=== PATIENT | male | born 1985 | race Caucasian/White ===

== ENCOUNTER 2017-11-26 13:50 | Inpatient (IN) | payer MEDICARE, MEDICAID ==
[~2017-11-26] VITALS: Ht 177.8 cm; Wt 77.6 kg
[~2017-11-26 13:50] MED LIST: LURA80 PO
[2017-11-26 15:27] LABS: APPEARANCE,URINE TURBID (CLEAR); BILIRUBIN,URINE NEGATIVE (NEGATIVE); GLUCOSE, URINE (UA) NEGATIVE (NEGATIVE); KETONES,URINE NEGATIVE (NEGATIVE); LEUKOCYTE ESTERASE ,URINE NEGATIVE (NEGATIVE); NITRATE,URINE NEGATIVE (NEGATIVE); OCCULT BLOOD,URINE NEGATIVE (NEGATIVE); PH,URINE 7.5 (5.0-8.0); PROTEIN,URINE NEGATIVE (NEGATIVE)
[2017-11-26] MEDS ORDERED: LITH300C3 PO (15:33)
[2017-11-26] MEDS ORDERED: PROP20TA7 PO (15:34)
[2017-11-26] MEDS ORDERED: BENZ0.5T6 PO (15:37)
[2017-11-26] MEDS ORDERED: DiphenhydrAMINE HCL 50 MG/ML VIAL IM ONE (17:00)
[2017-11-26] MEDS ORDERED: FluPHENAZine HCL 2.5 MG/ML INJ IM ONE (17:00)
[2017-11-26] MEDS ORDERED: LORazepam 2 MG/ML VIAL IM ONE (17:00)
[2017-11-26 17:04] LABS: BASOPHILS % (AUTO) 0.6 % (0.0-2.0); EOSINOPHILS % (AUTO) 3.7 % (1.0-6.0); HEMATOCRIT 41.9 % (41-53); HEMOGLOBIN 13.9 g/dL (13.5-17.5); LYMPHOCYTES # (AUTO) 2.6 K/uL (1.0-4.8); LYMPHOCYTES % (AUTO) 22.7 % (22.0-44.0); MEAN CORPUSCULAR HEMOGLOBIN 31.2 pg (26.0-34.0); MEAN CORPUSCULAR HGB CONC 33.2 G/dL (31.0-37.0); MEAN CORPUSCULAR VOLUME 94 fL (80-100); MONOCYTES # (AUTO) 0.9 K/uL (0.1-1.0); MONOCYTES % (AUTO) 7.8 % (2.0-9.0); NEUTROPHILS # (AUTO) 7.4 K/uL (1.8-7.7); NEUTROPHILS % (AUTO) 65.2 % (40.0-70.0); PLATELET COUNT (AUTO) 333 K/uL (150-450); RED BLOOD CELL COUNT(AUTO) 4.46 MIL/uL (4.50-5.90); RED CELL DISTRIBUTION WIDTH 14.8 % (11.5-14.5)
[2017-11-26 17:22] LABS: ANION GAP 12 mmol/L (8-16); CALCIUM, TOTAL 9.5 mg/dL (8.8-10.5); CARBON DIOXIDE 27 mmol/L (22-29); CHLORIDE 102 mmol/L (98-107); CREATININE 0.97 mg/dL (0.60-1.30); GLOMERULAR FILTR. RATE CALC > 60 mL/min (>60); GLUCOSE,RANDOM 116 mg/dL (70-110); POTASSIUM 3.8 mmol/L (3.5-5.1); SODIUM SERUM 141 mmol/L (136-145); UREA NITROGEN, BLOOD 10 mg/dL (7-18)
[2017-11-26 17:30] LABS: ALANINE AMINOTRANSFERASE 37 U/L (12-78); ALKALINE PHOSPHATASE 68 U/L (46-116); ASPARTATE AMINOTRANSFERASE 29 U/L (15-37); BILIRUBIN,TOTAL 0.2 mg/dL (0.1-1.0); TOTAL PROTEIN, SERUM 7.1 g/dL (6.4-8.2)
[2017-11-26] MEDS ORDERED: FluPHENAZine HCL 5 MG TABLET PO PRN (17:30)
[2017-11-26] MEDS ORDERED: ZOLPIDEM TARTRATE 10 MG TABLET PO PRN (17:30)
[2017-11-26 18:49] LABS: AMPHET/METH SCREEN,URINE NEGATIVE (NEGATIVE); BARBITURATE SCREEN, URINE NEGATIVE (NEGATIVE); BENZODIAZEPINES SCREEN,URINE NEGATIVE (NEGATIVE); CANNABINOID SCREEN,URINE POSITIVE (NEGATIVE); COCAINE SCREEN,URINE NEGATIVE (NEGATIVE); METHADONE SCREEN, URINE NEGATIVE (NEGATIVE); OPIATE SCREEN,URINE NEGATIVE (NEGATIVE)
[2017-11-26 18:54] LABS: PHENCYCLIDINE SCREEN,URINE NEGATIVE (NEGATIVE)
[2017-11-26 19:55] VITALS: BP 123/74
[2017-11-27 06:19] VITALS: BP 127/63
[2017-11-27 07:00] LABS: CHOL/HDL RATIO 2.3 (4.2-7.3)
[2017-11-27 12:37] VITALS: BP 120/52
[2017-11-27 20:23] VITALS: BP 116/59
[2017-11-28] MEDS ORDERED: ACETAMINOPHEN 325 MG TABLET PO PRN (09:00)
[2017-11-28] MEDS ORDERED: IBUPROFEN 600 MG TABLET PO PRN (09:00)
[2017-11-28 13:20] VITALS: BP 107/58
[2017-11-28] MEDS ORDERED: BACITRACIN 28.4 GM OINTMENT TP PRN (14:00)
[2017-11-28] MEDS: LORazepam 2 MG TABLET PO PRN (17:13)
[2017-11-28 23:01] VITALS: BP 119/75
[2017-11-29 09:58] VITALS: BP 107/63
[2017-11-29] MEDS: BENZTROPINE MESYLATE 2 MG TABLET PO SCH (20:09)
[2017-11-29] MEDS: LITHIUM CARBONATE 600 MG CAPSULE PO SCH (20:09)
[2017-11-29 20:12] VITALS: BP 110/68
[2017-11-30 08:30] VITALS: BP 122/72
[2017-11-30] MEDS: RisperiDONE 3 MG TABLET PO SCH ×2 (09:10→15:59)
[2017-11-30] MEDS: BENZTROPINE MESYLATE 2 MG TABLET PO SCH (20:15)
[2017-11-30] MEDS: LITHIUM CARBONATE 600 MG CAPSULE PO SCH (20:15)
[2017-11-30 22:03] VITALS: BP 122/74
[2017-12-01] MEDS: RisperiDONE 3 MG TABLET PO SCH ×2 (09:03→16:05)
[2017-12-01 09:10] VITALS: BP 123/66
[2017-12-01 16:45] VITALS: BP 133/76
[2017-12-01] MEDS: LITHIUM CARBONATE 600 MG CAPSULE PO SCH (20:21)
[2017-12-01] MEDS: BENZTROPINE MESYLATE 2 MG TABLET PO SCH (20:21)
[2017-12-02 00:05] VITALS: BP 109/74
[2017-12-02] MEDS: LORazepam 2 MG TABLET PO PRN (00:11)
[2017-12-02] MEDS ORDERED: RISP3 PO (08:22)
[2017-12-02] MEDS ORDERED: LITH600 PO (08:22)
[2017-12-02] MEDS ORDERED: BENZ2TAB10 PO (08:22)
[2017-12-02] MEDS: RisperiDONE 3 MG TABLET PO SCH (08:40)
[2017-12-02 09:39] VITALS: BP 123/89
== END 2017-12-02 11:15 | disposition home or self-care (01) | DRG 885 ==
LOC: EMS 13:55 → 3EX 18:33
PROVIDERS: ADMIT Psychiatry & Neurology Psychiatry; ATTEND Psychiatry & Neurology Psychiatry
DX: F20.0 Paranoid schizophrenia (principal); D72.829 Elevated white blood cell count, unspecified; F12.10 Cannabis abuse, uncomplicated; F90.9 Attention-deficit hyperactivity disorder, unspecified type; M54.9 Dorsalgia, unspecified; F17.200 Nicotine dependence, unspecified, uncomplicated; H91.90 Unspecified hearing loss, unspecified ear; Z88.8 Allergy status to other drugs, medicaments and biological substances; Z79.899 Other long term (current) drug therapy; Z81.8 Family history of other mental and behavioral disorders; Z82.49 Family history of ischemic heart disease and other diseases of the circulatory system
CPT/HCPCS: 96372; 99285; G0480; J1200; J2060; J3490

== ENCOUNTER 2018-01-21 19:50 | Emergency (ER) | payer MEDICARE, MEDICAID ==
[~2018-01-21 19:50] MED LIST changes: +BENZ2TAB10 PO; +LITH600 PO; -LURA80 PO; +RISP3 PO
[2018-01-21] MEDS ORDERED: RISP1 PO (22:49)
[2018-01-21] MEDS ORDERED: PROP10TA72 PO (22:49)
== END 2018-01-21 21:32 | disposition left against medical advice (07) ==
LOC: EMS 19:52
DX: Z53.21 Procedure and treatment not carried out due to patient leaving prior to being seen by health care provider (principal)

== ENCOUNTER 2018-01-21 22:21 | Emergency (ER) | payer MEDICARE, OTHER ==
[~2018-01-21] VITALS: Ht 185.4 cm; Wt 90.9 kg
[2018-01-21] MEDS ORDERED: RISP1 PO (22:49)
[2018-01-21] MEDS ORDERED: PROP10TA72 PO (22:49)
[2018-01-21 23:07] LABS: BASOPHILS % (AUTO) 0.7 % (0.0-2.0); EOSINOPHILS % (AUTO) 3.1 % (1.0-6.0); HEMATOCRIT 38.9 % (41-53); HEMOGLOBIN 13.3 g/dL (13.5-17.5); LYMPHOCYTES # (AUTO) 2.8 K/uL (1.0-4.8); LYMPHOCYTES % (AUTO) 27.4 % (22.0-44.0); MEAN CORPUSCULAR HEMOGLOBIN 31.2 pg (26.0-34.0); MEAN CORPUSCULAR HGB CONC 34.2 G/dL (31.0-37.0); MEAN CORPUSCULAR VOLUME 91 fL (80-100); NEUTROPHILS % (AUTO) 58.8 % (40.0-70.0); PLATELET COUNT (AUTO) 241 K/uL (150-450); RED BLOOD CELL COUNT(AUTO) 4.27 MIL/uL (4.50-5.90); RED CELL DISTRIBUTION WIDTH 13.9 % (11.5-14.5)
[2018-01-21 23:27] LABS: ANION GAP 6 mmol/L (8-16); CARBON DIOXIDE 30 mmol/L (22-29); CHLORIDE 104 mmol/L (98-107); CREATININE 0.88 mg/dL (0.60-1.30); GLOMERULAR FILTR. RATE CALC > 60 mL/min (>60); GLUCOSE,RANDOM 101 mg/dL (70-110); POTASSIUM 4.1 mmol/L (3.5-5.1); SODIUM SERUM 140 mmol/L (136-145); UREA NITROGEN, BLOOD 13 mg/dL (7-18)
[2018-01-21 23:29] LABS: AMPHET/METH SCREEN,URINE NEGATIVE (NEGATIVE); BARBITURATE SCREEN, URINE NEGATIVE (NEGATIVE); BENZODIAZEPINES SCREEN,URINE NEGATIVE (NEGATIVE); CANNABINOID SCREEN,URINE NEGATIVE (NEGATIVE); COCAINE SCREEN,URINE NEGATIVE (NEGATIVE); METHADONE SCREEN, URINE NEGATIVE (NEGATIVE); OPIATE SCREEN,URINE NEGATIVE (NEGATIVE); PHENCYCLIDINE SCREEN,URINE NEGATIVE (NEGATIVE)
[2018-01-21 23:33] LABS: ALANINE AMINOTRANSFERASE 62 U/L (12-78); ALBUMIN 3.6 g/dL (3.4-5.0); ALKALINE PHOSPHATASE 78 U/L (46-116); ASPARTATE AMINOTRANSFERASE 55 U/L (15-37); BILIRUBIN,TOTAL 0.2 mg/dL (0.1-1.0); TOTAL PROTEIN, SERUM 7.1 g/dL (6.4-8.2)
[2018-01-22] MEDS ORDERED: LORazepam 2 MG/ML VIAL IM ONE (00:15)
[2018-01-22] MEDS ORDERED: DiphenhydrAMINE HCL 50 MG/ML VIAL IM ONE (00:15)
[2018-01-22] MEDS ORDERED: FluPHENAZine HCL 2.5 MG/ML INJ IM ONE (00:15)
[2018-01-22 01:49] VITALS: BP 122/79
== END 2018-01-22 02:24 | disposition home or self-care (01) ==
LOC: EMS 22:21
DX: F41.9 Anxiety disorder, unspecified (principal); F25.9 Schizoaffective disorder, unspecified; B36.9 Superficial mycosis, unspecified; F31.9 Bipolar disorder, unspecified; F90.9 Attention-deficit hyperactivity disorder, unspecified type
CPT/HCPCS: 36415; 80053; 80307; 85025; 96372; 99284; G0480; J1200; J2060; J3490